=== PATIENT | female | born 1980 | race Asian ===

== ENCOUNTER 2016-12-15 15:07 | Emergency (ER) | payer SELFPAY ==
[~2016-12-15] VITALS: Ht 154.9 cm; Wt 53.6 kg
[2016-12-15] MEDS ORDERED: ACETAMINOPHEN 325 MG TABLET PO ONE (15:45)
[2016-12-15 16:11] VITALS: BP 145/77
== END 2016-12-15 16:13 | disposition home or self-care (01) ==
LOC: EMS 15:08
DX: S39.011A Strain of muscle, fascia and tendon of abdomen, initial encounter (principal); V49.9XXA Car occupant (driver) (passenger) injured in unspecified traffic accident, initial encounter; Y93.89 Activity, other specified; Y92.414 Local residential or business street as the place of occurrence of the external cause; Y99.8 Other external cause status
CPT/HCPCS: 99283